=== PATIENT | male | born 1990 | race African-American/Black ===

== ENCOUNTER → 2018-03-06 07:48 | Outpatient (CLI) | payer OTHER, SELFPAY | PROVIDERS: Visit Provider Family Medicine | DX: S39.012A Strain of muscle, fascia and tendon of lower back, initial encounter (principal); Z53.9 Procedure and treatment not carried out, unspecified reason ==

== ENCOUNTER → 2018-07-31 16:27 | Outpatient (CLI) | payer OTHER, SELFPAY ==
[2018-07-31 17:38] LABS: Add Manual Diff / Slide Review NO; Basophils Absolute Auto 0 /uL (0-100); Basophils Percent Auto 0.5 % (0-2); Eosinophils Absolute Auto 200 /uL (0-450); Eosinophils Percent Auto 1.9 % (2-4); Hematocrit 44.9 % (41-53); Hemoglobin 14.6 g/dL (13.5-17.5); Lymphocytes Absolute Auto 2200 /uL (1100-4500); Lymphocytes Percent Auto 26.2 % (25-40); Mean Corpuscular HGB Conc 32.6 % (30-36); Mean Corpuscular Hemoglobin 29.6 PG (26-34); Mean Corpuscular Volume 90.9 fL (80-100); Monocytes Absolute Auto 800 /uL (0-900); Neutrophils Absolute Auto 5100 /uL (1500-7000); Neutrophils Percent Auto 61.4 % (50-75); Platelet Count 249 X10^3/uL (150-400); Red Blood Cell Count 4.93 X10^6/uL (4.5-5.9); Red Cell Distribution Width 13.8 % (11.6-14.8); White Blood Cell Count 8.2 X10^3/uL (4.5-11.0)
[2018-07-31 18:22] LABS: Hemoglobin A1C% w Est Avg Glu 6.4 % (4.0-6.0)
== END ==
PROVIDERS: PCP Family Medicine; Visit Provider Orthopaedic Surgery Orthopaedic Surgery of the Spine
DX: R73.9 Hyperglycemia, unspecified (principal); Z01.818 Encounter for other preprocedural examination
CPT/HCPCS: 36415; 83036; 85025

== ENCOUNTER 2018-08-17 12:21 | Day surgery (SDC) | payer OTHER, SELFPAY ==
[2018-08-02 14:35] VITALS: BMI 51.8
[2018-08-17] VITALS (8 sets, daily range): BP systolic 116–188; BP diastolic 75–112; PULSE 76–140; RESP 12–27; TEMP 36.2–37.2; O2SAT 93–100; BMI 47.7
--- NOTE | 2018-08-17 | DI.RAD.S_ITS ---
PROCEDURE: XR LUMBAR SPINE 2-3V INDICATIONS: L4-5 MICRODISCECTOMY TECHNIQUE: 2 views of the lumbar spine were acquired. COMPARISON: [facility] [place], CR, XR LUMBAR SPINE 2 OR 3 VIEWS, 03/30/2017, 15:25. FINDINGS: Bones: Surgical instrument projected over the posterior elements at the L4-L5 level. Soft tissues: Overlying bowel gas pattern is normal. No suspicious soft tissue calcifications. IMPRESSION: Localization of the left posterior elements at the L4-L5 level for operative planning. Dictated by: Jose Antonio SANCHEZ Interpreted: Verna Mobley MD on 08/17/2018 at 17:15 Approved by: Verna Mobley M.D. on 08/17/2018 at 17:23
[2018-08-17] MEDS: LACTATED RINGERS 1,000 ML 100 ML IV ×2 (13:15→15:57)
--- NOTE | 2018-08-17 14:31 | PM.PREOP ---
Pre-operative Note Interval Note History & Physical reviewed/Exam performed by Physician: Yes Changes to H&P: No
[2018-08-17] MEDS: CEFAZOLIN VIAL 3 GM in SODIUM CHLORIDE 0.9% 100 ML 200 ML IV (15:02)
--- NOTE | 2018-08-17 15:35 | SUR.OPER ---
Prone on spine table, head in foam head support, padded chest and pelvic supports, gel pad at knees, lower legs supported by pillows; nipples, genitalia and toes free of pressure, arms secured on foam padded arm boards at <90 degrees abduction. Tape over blanket at thigh secured to table.
[2018-08-17] MEDS: BUPIVACAINE 0.25% W/ EPI 30 ML VIAL INJ (15:43)
[2018-08-17] MEDS: methylPREDNISolone acet DEPO 40 MG/ML VIAL IM (15:45)
--- NOTE | 2018-08-17 16:29 | PM.OP.1 ---
Operative Date/Time/Diagnoses Date of procedure: 08/17/18 Time of procedure: 13:29 Pre-op diagnosis: 1. L4-5 disc herniation 2. L4-5 spinal stenosis Post-op diagnosis: same Procedure & Clinicians Procedure: 1. L4-5 left microdiscectomy 2. Utilization of microsurgical technique and operating microscope Same procedure as scheduled: Yes Indications: Patient has been having chronic back pain and worsening lumbar radiculopathy. Patient failed multiple conservative management with worsening pain weakness and numbness in her lower extremity. Patient has been having difficulty performing activity of daily living. After discussing risks benefits of treatment options, patient elected proceed with surgery. Surgeon: Kay Armstrong Application Integration Engineer: Tere Sanderson Anesthesia Type: General Operative Notes Closure Type: primary Specimen(s): none sent Estimated Blood Loss (mL): 10 Blood products transfused: none Procedure in detail: Patient was seen in the preoperative area. Risks and benefits of the surgery was discussed with the patient. Informed consent was obtained from the patient and placed in the chart. Surgical site was marked. Patient was taken to the operative room. General anesthesia was administered. Prophylactic antibiotic was given to the patient less than 30 min before the incision was made. Patient was placed into a prone position on the Jeremie table. Patient's back was then prepped and draped in the sterile fashion. Time-out was performed at this time. Using AP and lateral C-arm imaging the interval between L4-5 was identified and marked on patient's back. A 1 inch incision 1 in from midline was made on the left side. The fascia was incised in line with skin incision. Globus MARS retractors was placed inside the incision and docked onto the L4 lamina. Using microsurgical technique and operating microscope, a L4 laminotomy was performed using a Kerrison rongeur. Liagamentum flavum was resected at the site of the laminotomy. The disc space at L4-5 was identified. Microdiscectomy was performed by incising the annulus with #11 blade. Microcurettes and pituitary was used to removed herniated disc fragments of disc from the epidural space. After the microdiskectomy was completed, the area medial lateral superior and inferior to the area of the microdiskectomy was inspected and explored using a micro curette. No other impinging structure was identified. The wound was then irrigated with sterile normal saline. 40 mg Depo-Medrol was placed into the epidural space. The deep fascia was closed with 1-0 Vicryl. The subcutaneous tissue was closed with 2-0 Vicryl. The skin was closed with 4-0 Monocryl. Patient tolerated the procedure well. There were no complications. Patient was transferred recovery room in stable condition. Complications: none Condition: stable Disposition: same day surgery Plan for aftercare: Discharge to home
[2018-08-17] MEDS: hydrOXYzine 50 MG/ML INJ 25 MG IM (17:13)
[2018-08-17] MEDS: HYDROMORPHONE 2 MG INJ 0.5 MG IV (17:21)
[2018-08-17] MEDS: OXYCODONE/ACETAMINOPHEN 5/325 TABLET 1 TAB PO (17:54)
--- NOTE | 2018-08-17 18:00 | SUR.PHASEII ---
surgical site observed to be c/d/i. reviewed discharge instructions with pt and pt spouse. no further questions or concerns asked. bed in lowest position and call light given to pt.
== END 2018-08-17 18:40 ==
LOC: OR 12:24
PROVIDERS: PCP Family Medicine; Visit Provider Orthopaedic Surgery Orthopaedic Surgery of the Spine
PROC: (CPT 63030; principal; 2018-08-17 14:15)
DX: M51.16 Intervertebral disc disorders with radiculopathy, lumbar region (principal); M48.061 Spinal stenosis, lumbar region without neurogenic claudication; M47.26 Other spondylosis with radiculopathy, lumbar region; E66.01 Morbid (severe) obesity due to excess calories; Z68.43 Body mass index [BMI] 50.0-59.9, adult; Z87.891 Personal history of nicotine dependence; G47.33 Obstructive sleep apnea (adult) (pediatric)
CPT/HCPCS: 63030; 72100; 76000; J0330; J0690; J1030; J1100; J1170; J2250; J2405; J2704; J3010; J3410

== ENCOUNTER 2019-08-12 17:23 | Emergency (ER) | payer OTHER, MEDICAID, SELFPAY ==
[2019-08-12 17:27] VITALS: BP 151/79; PULSE 97; RESP 18; TEMP 37.1; O2SAT 96
--- NOTE | 2019-08-12 17:32 | DI.RAD.S_ITS ---
PROCEDURE: XR CHEST 1V INDICATIONS: chest pain TECHNIQUE: One view of the chest was acquired. COMPARISON: None. FINDINGS: Surgical changes and devices: None. Lungs and pleura: Lungs are clear. No pleural effusions or pneumothorax. Mediastinum: Mediastinal contours appear normal. Heart size is normal. Bones and chest wall: No suspicious bony lesions. Overlying soft tissues appear unremarkable. IMPRESSION: Normal chest.. Dictated by: Chery Vance M.D. on 08/12/2019 at 18:28 Approved by: Chery Vance M.D. on 08/12/2019 at 18:29
--- NOTE | 2019-08-12 18:02 | ED_ITS ---
HPI - Chest Pain General Chief Complaint: Chest Pain Stated Complaint: dull aches in heart Time Seen by Provider: 08/12/19 18:02 Source: patient Mode of arrival: Ambulatory Limitations: no limitations History of Present Illness HPI narrative: 29-year-old otherwise healthy male here for evaluation of left- sided chest discomfort he describes it as a pressure. He states it has been off and on for the past week but more prevalent today. He thinks that he has had the symptoms most of the day today. He cannot remember time when he did not have it but is not 100% convinced that he has had it all day long. Not ass ociated with shortness of breath. Not made worse with palpation or movement or breathing. Is associated with some left arm tingling. He also describes some 1 very short episode of lightheadedness but is unsure if that is associated with any of his other symptoms. Was told to come into the emergency department by co-worker. Related Data Home Medications Medication Instructions Recorded Confirmed celecoxib [Celebrex] 200 mg PO BID 08/02/18 08/17/18 Allergies Allergy/AdvReac Type Severity Reaction Status Date / Time No Known Drug Allergies Allergy Verified 08/17/18 12:41 Review of Systems Constitutional Constitutional: Denies fever(s) and Denies headache(s) ENT Ears, Nose, Mouth, and Throat: Denies headache(s) and Denies disequilibrium Cardiovascular Cardiovascular: Reports chest pain, Denies chest pain with activity, Denies syncope, Denies rapid heart rate, Denies leg edema, Denies palpitations and Denies dyspnea Respiratory Respiratory: Denies cough, Denies dyspnea and Denies wheezing Gastrointestinal Gastrointestinal: Denies abdominal pain, Denies nausea and Denies vomiting Musculoskeletal Musculoskeletal: Denies myalgias, Denies arthralgias and Reports tingling (Left arm) Integumentary/Breasts Comments: Left arm tingling Neurologic Neurologic: Denies behavioral changes, Denies syncope, Denies headache(s), Reports tingling (Left arm) and Denies disequilibrium Psychiatric Psychiatric: Denies behavioral changes Endocrine Endocrine: Denies palpitations Hematologic/Lymphatic Hematologic/Lymphatic: Denies easy bleeding and Denies easy bruising Allergic/Immunologic Allergic/Immunologic: Denies wheezing Patient History Medical History Closed head injury (Acute) Current every day smoker (Acute) Joint dislocation (Acute) Low back pain (Acute) Migraines (Acute) Severe obesity (BMI >= 40) (Acute) Sleep apnea (Acute) Social History household members: spouse, family and children Smoking Status: Former smoker Smoking Status: Former smoker Exam Initial Vital Signs Initial Vital Signs: Vital Signs Temperature 98.7 F 08/12/19 17:27 Pulse Rate 97 H 08/12/19 17:27 Respiratory Rate 18 08/12/19 17:27 Blood Pressure 151/79 H 08/12/19 17:27 Pulse Oximetry 96 08/12/19 17:27 Const General: cooperative, comfortable and well developed Limitations: mental status not altered HENMT Head: normal to inspection and normocephalic Resp Effort & Inspection: normal respiratory effort Auscultation: clear to auscultation bilaterally Cardio Rate: regular rate Rhythm: regular rhythm GI Inspection: non-distended Palpation: soft Skin Lesions: no lesions Rashes: no rashes Neuro General: alert, awake and oriented x3 Cognition: normal cognition Speech: speech normal Extrem General: normal to inspection and capillary refill normal Psych Appearance: grossly normal and well kempt Scores GCS [place] coma scale eye opening: Spontaneous Javed coma scale verbal response: Orientated Javed coma scale motor response: Obey commands Javed coma scale total score: 15 HEART Score Heart Score history: Slightly Suspicious Heart Score EKG: Normal Heart Score Age: < 45 years old Heart Score risk factors: 1-2 risk factors Heart Score troponin: < or = to normal limit Heart Score Total: 1 Course Orders Ordered: ED Orders 08/12/19 17:32 XR chest 1V Stat EKG-12 Lead Stat 08/12/19 18:06 Complete Blood Count AUTO DIFF Stat Comprehensive Metabolic Panel Stat Lipase Stat Troponin & CK Cardiac Panel Stat 08/12/19 19:52 Troponin I Stat Discontinued Medications Aspirin (Aspirin Chew) 324 mg PO NOW ONE Stop: 08/12/19 17:33 Last Admin: 08/12/19 18:04 Dose: 324 mg Documented by: BTONER Sodium Chloride (Normal Saline 0.9%) 1,000 mls @ 150 mls/hr IV CONT SARA Last Admin: 08/12/19 21:16 Dose: Not Given Documented by: GARCIAUDDALIA Vital Signs Vital signs: Vital Signs - 8 hr 08/12/19 17:27 08/12/19 19:23 08/12/19 20:05 Temperature 98.7 F Pulse Rate 97 H 92 H 105 H Respiratory Rate 18 22 23 Blood Pressure 151/79 H Blood Pressure [Right Wrist] 142/76 H 158/68 H Pulse Oximetry 96 100 98 08/12/19 20:30 Temperature Pulse Rate 102 H Respiratory Rate 18 Blood Pressure Blood Pressure [Right Wrist] 165/69 H Pulse Oximetry 99 MDM - Chest Pain Medical Records Data Attestation: I reviewed the patient's medical records. Lab Data Attestation: I reviewed the patient's lab results. Result diagrams: 08/12/19 18:06 08/12/19 18:06 Labs: Lab Results 08/12/19 08/12/19 08/12/19 Range/Units 18:06 18:06 19:52 WBC 6.2 (4.5-11.0) X10^3/uL RBC 4.84 (4.5-5.9) X10^6/uL Hgb 14.8 (13.5-17.5) g/dL Hct 43.6 (41-53) % MCV 90.1 (80-100) fL MCH 30.5 (26-34) PG MCHC 33.9 (30-36) % RDW 13.7 (11.6-14.8) % Plt Count 235 (150-400) X10^3/uL Neut % (Auto) 73.9 (50-75) % Lymph % (Auto) 19.2 L (25-40) % [place] % (Auto) 6.1 (3-14) % Eos % (Auto) 0.3 L (2-4) % Baso % (Auto) 0.5 (0-2) % Neut # (Auto) 4600 (6420-1325) /uL Lymph # (Auto) 1200 (9034-1909) /uL [place] # (Auto) 400 (0-900) /uL Eos # (Auto) 0 (0-450) /uL Baso # (Auto) 0 (0-100) /uL Sodium 139 (137-145) mmol/L Potassium 4.0 (3.4-5.1) mmol/L Chloride 102 (98-107) mmol/L Carbon Dioxide 27 (22-32) mmol/L BUN 16 (9-20) mg/dL Creatinine 0.96 (0.66-1.25) mg/dL Estimated GFR > 60.0 (>60) mL/min BUN/Creatinine Ratio 16.7 (6-22) Glucose 124 H (70-100) mg/dL Calcium 10.0 (8.4-10.2) mg/dL Total Bilirubin 0.4 (0.2-1.3) mg/dL AST 53 (17-59) IU/L ALT 55 H (<50) IU/L Alkaline Phosphatase 62 (38-126) U/L Total Creatine Kinase 1444 H (55-170) U/L CK-MB (CK-2) 3.69 H (<2.37) ng/mL CK-MB (CK-2) Rel Index 0.3 L (1.5-5.0) % Troponin I < 0.012 < 0.012 (0.01-0.034) ng/mL Total Protein 8.5 H (6.3-8.2) g/dL Albumin 4.8 (3.5-5.0) g/dL Globulin 3.7 (1.7-4.1) g/dL Albumin/Globulin Ratio 1.3 (1.0-2.8) Lipase 109 (23-300) U/L Imaging Data Chest x-ray: Radiologist's Impression: [place] [address] XRay Report Signed Patient: Geoff Ruano [facility]#: [id number] : 1990Acct:[id number] Age/Sex: 29 / MDate of Service: 08/12/19 Loc: ED Accession Number: [id number] Procedure: XR chest 1V Ordering Provider: Cortes Farr D.O. PROCEDURE: XR CHEST 1V INDICATIONS: chest pain TECHNIQUE: One view of the chest was acquired. COMPARISON: None. FINDINGS: Surgical changes and devices: None. Lungs and pleura: Lungs are clear. No pleural effusions or pneumothorax. Mediastinum: Mediastinal contours appear normal. Heart size is normal. Bones and chest wall: No suspicious bony lesions. Overlying soft tissues appear unremarkable. IMPRESSION: Normal chest.. Dictated by: Chery Vance M.D. on 08/12/2019 at 18:28 Approved by: Chery Vance M.D. on 08/12/2019 at 18:29 ECG Data Attestation: I personally reviewed and interpreted this ECG as follows: Prior ECG tracings: not available for review Interpretation: Sinus rhythm Ventricular rate of 93 Sinus arrhythmia Normal QRS Normal QTC No ST T wave changes MDM Narrative Medical decision making narrative: Low risk heart score, EKG chest x-ray and troponins negative x2. Low suspicion for ACS. Unsure the exact etiology of patient's symptoms but feel it is less likely ACS. Informed patient to contact his primary doctor to discuss indications for stress testing. He was given return precautions and follow-up instructions. He expressed understanding and agreement. Discharge Plan Departure Patient Disposition: Home Clinical Impression: Atypical chest pain Discharge Date/Time: 08/12/19 21:27 Instructions: DI for Atypical Chest Pain Activity Restrictions/Additional Instructions: Recommend that you contact Dr. Fontana office to discuss the indications for a stress test. Return to the emergency department for any new or worsening symptoms Prescriptions: No Action celecoxib [Celebrex] 200 mg Capsule 200 mg PO BID RF: 0 Referrals: Mich Fontana MD [Primary Care Provider] -
[2019-08-12] MEDS: ASPIRIN 81 MG CHEW TAB 324 MG PO (18:04)
[2019-08-12 18:12] LABS: Add Manual Diff / Slide Review NO; Basophils Absolute Auto 0 /uL (0-100); Basophils Percent Auto 0.5 % (0-2); Eosinophils Absolute Auto 0 /uL (0-450); Eosinophils Percent Auto 0.3 % (2-4); Hematocrit 43.6 % (41-53); Hemoglobin 14.8 g/dL (13.5-17.5); Lymphocytes Absolute Auto 1200 /uL (1100-4500); Lymphocytes Percent Auto 19.2 % (25-40); Mean Corpuscular HGB Conc 33.9 % (30-36); Mean Corpuscular Hemoglobin 30.5 PG (26-34); Mean Corpuscular Volume 90.1 fL (80-100); Monocytes Absolute Auto 400 /uL (0-900); Monocytes Percent Auto 6.1 % (3-14); Neutrophils Absolute Auto 4600 /uL (1500-7000); Neutrophils Percent Auto 73.9 % (50-75); Platelet Count 235 X10^3/uL (150-400); Red Blood Cell Count 4.84 X10^6/uL (4.5-5.9); Red Cell Distribution Width 13.7 % (11.6-14.8); White Blood Cell Count 6.2 X10^3/uL (4.5-11.0)
[2019-08-12 18:37] LABS: Alanine Aminotransferase 55 IU/L (<50); Albumin 4.8 g/dL (3.5-5.0); Albumin Globulin Ratio 1.3 (1.0-2.8); Alkaline Phosphatase 62 U/L (38-126); Aspartate Aminotransferase 53 IU/L (17-59); BUN Creatinine Ratio 16.7 (6-22); Bilirubin Total 0.4 mg/dL (0.2-1.3); Blood Urea Nitrogen 16 mg/dL (9-20); Carbon Dioxide 27 mmol/L (22-32); Chloride 102 mmol/L (98-107); Creatine Kinase 1444 U/L (55-170); Estimated Glomerular Filt Rate > 60.0 mL/min (>60); Globulin 3.7 g/dL (1.7-4.1); Glucose 124 mg/dL (70-100); HEMOLYSIS < 15 (0-50); Lipase 109 U/L (23-300); Sodium 139 mmol/L (137-145); Total Protein 8.5 g/dL (6.3-8.2)
[2019-08-12 18:49] LABS: Troponin I < 0.012 ng/mL (0.01-0.034)
[2019-08-12 18:53] LABS: CKMB % Relative Index 0.3 % (1.5-5.0); Creatine Kinase MB 3.69 ng/mL (<2.37)
[2019-08-12 19:23] VITALS: BP 142/76; PULSE 92; RESP 22; O2SAT 100
[2019-08-12 20:05] VITALS: BP 158/68; PULSE 105; RESP 23; O2SAT 98
[2019-08-12 20:30] VITALS: BP 165/69; PULSE 102; RESP 18; O2SAT 99
[2019-08-12 20:31] LABS: Troponin I < 0.012 ng/mL (0.01-0.034)
--- NOTE | 2019-08-12 21:15 | PC.NURSE ---
Patient had questions upon discharge. Provider Lanker at bedside.
--- NOTE | 2019-08-12 21:20 | PC.NURSE ---
Reports tingling and numbness in one or both arms at times. Patient Denies chest pain or SOB currently
== END 2019-08-12 21:27 | disposition home or self-care (01) ==
PROVIDERS: Emergency Medicine; Emergency Provider Emergency Medicine; PCP Family Medicine
DX: R07.89 Other chest pain (principal)
CPT/HCPCS: 36415; 71045; 80053; 82550; 82553; 83690; 84484; 85025; 93005; 93010; 99283; 99284

== ENCOUNTER → 2019-09-21 09:10 | Outpatient (CLI) | payer OTHER, MEDICAID, SELFPAY ==
[2019-09-22 09:05] LABS: COVID19 Sendout Not Detected (Not Detect)
== END ==
PROVIDERS: PCP Family Medicine; Visit Provider Physician Assistant
DX: Z01.812 Encounter for preprocedural laboratory examination (principal)
CPT/HCPCS: 87635

== ENCOUNTER → 2019-09-24 14:41 | Outpatient (CLI) | payer OTHER, MEDICAID, SELFPAY ==
--- NOTE | 2019-09-24 16:06 | PM.TREADMILL ---
Cardiac Stress Test Report Referral & Results Date Patient Seen: 09/24/19 Time Patient Seen: 16:06 Requesting provider: Mich Fontana Indication: chest pain Rest ECG: sinus rhythm Procedure Note: Standard Vincent protocol, 9:00, 9.7 METS Reduced exercise capacity, KENNETH +35% Normal hemodynamic response to exercise No chest pain or anginal symptoms No significant ST changes with peak exercise; no ectopy Impression: Normal exercise stress test MIBI images pending Please note: Actual ECG tracings can be found in the PACS system.
--- NOTE | 2019-09-25 14:36 | DI.NM.S_ITS ---
PROCEDURE PERFORMED: Exercise treadmill stress and rest myocardial perfusion imaging with gating to assess ejection fraction and regional wall motion. DATE OF SERVICE: 09/24/2019. ORDERING PROVIDER: Dr. Mich Fontana. INDICATIONS: The patient is a 29-year-old obese male with atypical chest pain. EXERCISE TREADMILL TESTING: The patient was able to exercise for 9 minutes on a standard Vincent protocol suggesting moderate-severely reduced exercise capacity with an KENNETH of +35%. He had a normal heart rate response to exercise, achieving a maximum heart rate of 166 bpm (87% of his predicted maximum) and a borderline hypertensive blood pressure response with a resting blood pressure of 136/92, increasing to a maximum of 190/98. He had no chest discomfort. His resting ECG is normal and there are no ischemic changes with stress. There were no arrhythmias identified. At 8 minutes of exercise at a heart rate of 162 bpm, 25.5 mCi of technetium-99m Myoview was injected and the patient was imaged 20 minutes laterusing a gated SPECT acquisition protocol. He returned the following day and wasreinjected with an additional 27.3 mCi of technetium-99m Myoview and was imaged 30 minutes later, again using a gated SPECT acquisition protocol. FINDINGS: RAW DATA: There is marginal image quality, in part because of the patient's body habitus and considerable motion on both the stress and the resting images that required application of a motion correction algorithm which itself can introduce artifact. The lung/heart ratio was mildly increased at 0.43, which can be a sign of pulmonary congestion but clinical correlation is needed. TID ratio was normal at 0.85. QUANTITATED GATED SPECT: Post-stress ejection fraction is 60% without any focal wall motion abnormality. Resting ejection fraction is 56% with significantly increased left ventricular volumes with a resting end-diastolic volume of 199 mL. MYOCARDIAL PERFUSION SCAN: Post-stress supine images show a fairly normal perfusion pattern without any obvious focal perfusion defects. This is supported by similar perfusion imaging in the prone position. The resting images show a similar perfusion pattern without any clear areas of improvement. CONCLUSION: 1. Normal myocardial perfusion study. 2. No obvious evidence of myocardial ischemia or previous myocardial infarction although image quality is slightly suboptimal. 3. Normal left ventricular systolic function with increased left ventricular volumes. A borderline elevated lung/heart ratio of 0.43 can indicate pulmonary congestion but clinical correlation is recommended. 4. Moderate-severely reduced exercise capacity without angina or ECG evidence of ischemia. He had a mild hypertensive blood pressure response to exercise. AldenGeoff espinoza - DEEPIKA/deonte/basia doc#: [id number]/job#: [id number] dd: 09/25/2019 12:44:00 dt: 09/25/2019 14:24:00 DICTATING MD/COPIES TO: Nik Fierro MD; Mihc Fontana MD COPIES MNE: AMELIA;
== END ==
PROVIDERS: PCP Family Medicine; Referring Provider Family Medicine; Visit Provider Family Medicine
DX: R07.89 Other chest pain (principal); E66.9 Obesity, unspecified
CPT/HCPCS: 78452; 93017; A9502

== ENCOUNTER 2019-09-30 15:19 | Emergency (ER) | payer OTHER, MEDICAID, SELFPAY ==
[2019-09-30 15:36] VITALS: BP 155/86; PULSE 96; RESP 16; TEMP 36.4; O2SAT 96; BMI 43.7
--- NOTE | 2019-09-30 15:54 | DI.RAD.S_ITS ---
PROCEDURE: XR CHEST 1V INDICATIONS: chest pain TECHNIQUE: One view of the chest was acquired. COMPARISON: [facility], CR, XR CHEST 1V, 08/12/2019, 17:50. FINDINGS: Surgical changes and devices: None. Lungs and pleura: Lungs are clear. No pleural effusions or pneumothorax. Mediastinum: Mediastinal contours appear normal. Heart size is normal. Bones and chest wall: No suspicious bony lesions. Overlying soft tissues appear unremarkable. IMPRESSION: No acute cardiopulmonary process is seen. Dictated by: Aries Balbuena M.D. on 09/30/2019 at 16:05 Approved by: Aries Balbuena M.D. on 09/30/2019 at 16:06
[2019-09-30 16:43] LABS: Add Manual Diff / Slide Review NO; Basophils Absolute Auto 0 /uL (0-100); Basophils Percent Auto 0.4 % (0-2); Eosinophils Absolute Auto 0 /uL (0-450); Eosinophils Percent Auto 0.5 % (2-4); Hematocrit 47.7 % (41-53); Hemoglobin 16.2 g/dL (13.5-17.5); Lymphocytes Absolute Auto 1200 /uL (1100-4500); Lymphocytes Percent Auto 16.6 % (25-40); Mean Corpuscular Hemoglobin 30.3 PG (26-34); Mean Corpuscular Volume 89.2 fL (80-100); Monocytes Absolute Auto 600 /uL (0-900); Neutrophils Absolute Auto 5600 /uL (1500-7000); Neutrophils Percent Auto 74.5 % (50-75); Platelet Count 280 X10^3/uL (150-400); Red Blood Cell Count 5.35 X10^6/uL (4.5-5.9); Red Cell Distribution Width 13.6 % (11.6-14.8); White Blood Cell Count 7.5 X10^3/uL (4.5-11.0)
[2019-09-30 16:45] LABS: INR 1.2 (0.9-1.3); Prothrombin Time 13.6 SECONDS (10.1-12.7)
[2019-09-30 16:48] LABS: PTT Partial Thromboplastin Tim 32 SECONDS (26.4-36.2)
[2019-09-30 16:50] LABS: Alanine Aminotransferase 84 IU/L (<50); Albumin 5.1 g/dL (3.5-5.0); Albumin Globulin Ratio 1.3 (1.0-2.8); Alkaline Phosphatase 73 U/L (38-126); Aspartate Aminotransferase 56 IU/L (17-59); BUN Creatinine Ratio 21.6 (6-22); Bilirubin Total 0.7 mg/dL (0.2-1.3); Blood Urea Nitrogen 22 mg/dL (9-20); Calcium 10.3 mg/dL (8.4-10.2); Carbon Dioxide 27 mmol/L (22-32); Chloride 100 mmol/L (98-107); Creatine Kinase 1112 U/L (55-170); Estimated Glomerular Filt Rate > 60.0 mL/min (>60); Globulin 3.8 g/dL (1.7-4.1); Glucose 141 mg/dL (70-100); HEMOLYSIS 28 (0-50); Lipase 213 U/L (23-300); Potassium 4.2 mmol/L (3.4-5.1); Sodium 137 mmol/L (137-145); Total Protein 8.9 g/dL (6.3-8.2)
[2019-09-30 17:02] LABS: Troponin I 0.017 ng/mL (0.01-0.034)
[2019-09-30 17:05] LABS: CKMB % Relative Index 0.2 % (1.5-5.0); Creatine Kinase MB 2.56 ng/mL (<2.37)
[2019-09-30 17:43] VITALS: BP 145/83; PULSE 91; O2SAT 96
[2019-09-30] MEDS: SODIUM CHLORIDE 0.9% 1,000 ML 1000 ML IV ×2 (18:50→20:22)
[2019-09-30 19:00] VITALS: BP 140/76; PULSE 86; RESP 19; O2SAT 96
[2019-09-30 19:07] LABS: NT-proBNP (BNP-Adult 18+) < 11 pg/mL (<125)
[2019-09-30 20:24] VITALS: BP 130/67; PULSE 89; RESP 18; O2SAT 94
[2019-09-30 20:51] LABS: Bacteria Urine None Seen; RBC Urine None Seen (0-5/HPF); WBC Urine None Seen (0-5/HPF)
--- NOTE | 2019-09-30 20:52 | ED.CHESTPAIN ---
HPI - Chest Pain <SOL Mcguire - Last Filed: 09/30/19 22:04> General Chief Complaint: Chest Pain Stated Complaint: Fast HR, Irregular Breathing Time Seen by Provider: 09/30/19 18:07 Source: patient Mode of arrival: Ambulatory Limitations: no limitations History of Present Illness HPI narrative: This is a 29-year-old male, former smoker, who has previous medical history as hypertension and had treadmill test 6 days ago presents to ED with chief complain of elevated heart rate in 100-110 (per wrist watch/monitor) for couple of hours for last 2 days with mild chest pressure. At one point his heart rate registered as 120 very briefly and had pounding sensation and difficulty catching breath which resolved quickly. Patient denies cold sweats, chest pain, nausea or vomiting. He had actually itching sensation around his heart last couple of days and he contributes this to high blood pressure medication changes. Moment Patient reports he is currently taking lisinopril and HCTZ to manage his blood pressure. She had recent stress test done due to he had atypical chest pain and 2 months months ago and was evaluated in ED. Patient reports he exercises regularly with weightlifting and running and his usual resting heart rate is in 70s to 80s. Patient reports he had not hydrated well yesterday after the workup. 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 However, patient states he has been little bit more stressed with Covid 19. Patient denies history of DVT, PE, blood clotting problems, recent surgeries. Patient reports maternal grandmother at young age with GA and his mother had a couple of episodes of mild heart attacks. Related Data Allergies Allergy/AdvReac Type Severity Reaction Status Date / Time No Known Drug Allergies Allergy Verified 09/21/19 10:22 Review of Systems <Don EngleStephanieSOL Walker - Last Filed: 09/30/19 22:04> Review of Systems Narrative: General: Denies fever, chills, fatigue, malaise, sweats. HEENT: Denies sinus pain, ear pain, sore throat, difficulty swallowing, dizziness. Respiratory: Denies dyspnea, cough, wheezing, hemoptysis, sputum. Cardiovascular: See HPI Gastrointestinal: Denies nausea, vomiting, abdominal pain, diarrhea, constipation, melena. : Denies dysuria, frequency, incontinence, hematuria, urinary retention. Musculoskeletal: Denies weakness, joint pain or bony pain. Skin: Denies rash, skin lesions, or other. Neurologic: Denies weakness, headache, numbness, change in speech, confusion, seizures, incoordination. Psychiatric: No concerning psychosocial issues. 12-point review of systems is negative except for those stated above. Patient History <SOL Mcguire - Last Filed: 09/30/19 22:04> Medical History Closed head injury (Acute) Joint dislocation (Acute) Low back pain (Acute) Migraines (Acute) Severe obesity (BMI >= 40) (Acute) Sleep apnea (Acute) Social History household members: spouse, family and children Smoking Status: Former smoker Smoking Status: Former smoker alcohol intake frequency: holidays/special occasions only Substance Use Type: does not use Exam <SOL Mcguire - Last Filed: 09/30/19 22:04> Narrative Exam Narrative: General: Denies fever, chills, fatigue, malaise, sweats. HEENT: Denies sinus pain, ear pain, sore throat, difficulty swallowing, dizziness. Respiratory: See HPI Cardiovascular: HPI Gastrointestinal: Denies nausea, vomiting, abdominal pain, diarrhea, constipation, melena. : Denies dysuria, frequency, incontinence, hematuria, urinary retention. Musculoskeletal: Denies weakness, joint pain or bony pain. Skin: Denies rash, skin lesions, or other. Neurologic: Denies weakness, headache, numbness, change in speech, confusion, seizures, incoordination. Psychiatric: No concerning psychosocial issues. 12-point review of systems is negative except for those stated above. Initial Vital Signs Initial Vital Signs: Vital Signs Temperature 97.6 F 09/30/19 15:36 Pulse Rate 96 H 09/30/19 15:36 Respiratory Rate 16 09/30/19 15:36 Blood Pressure 155/86 H 09/30/19 15:36 Pulse Oximetry 96 09/30/19 15:36 <Dee Alejandro MD - Last Filed: 10/01/19 00:25> Initial Vital Signs Initial Vital Signs: Vital Signs Temperature 97.6 F 09/30/19 15:36 Pulse Rate 96 H 09/30/19 15:36 Respiratory Rate 16 09/30/19 15:36 Blood Pressure 155/86 H 09/30/19 15:36 Pulse Oximetry 96 09/30/19 15:36 Scores <[facility] - Last Filed: 09/30/19 22:04> GCS [place] coma scale eye opening: Spontaneous Jvaed coma scale verbal response: Orientated Javed coma scale motor response: Obey commands [place] coma scale total score: 15 Wells' Criteria for PE Clinical signs and symptoms of DVT: No PE is #1 Dx or equally likely: No Heart rate > 100: Yes Immobilization at least 3 days or surg in previous 4 weeks: No History of PE or DVT: No Hemoptysis: No Malignancy w/Treatment within 6 months or palliative: No Wells' PE Score total: 1.5 Course <[facility] Filed: 09/30/19 22:04> Orders Ordered: ED Orders 09/30/19 15:50 EKG-12 Lead Stat 09/30/19 15:54 XR chest 1V Stat 09/30/19 16:27 Complete Blood Count AUTO DIFF Stat Comprehensive Metabolic Panel Stat Lipase Stat NT-proBNP (BNP-Adult 18+) Stat Partial Thromboplastin Time Stat Prothrombin Time INR Stat Troponin & CK Cardiac Panel Stat 09/30/19 20:15 Urine Microscopic Stat 09/30/19 20:35 Troponin & CK Cardiac Panel Stat Discontinued Medications Sodium Chloride (Normal Saline 0.9%) 1,000 mls @ 1,000 mls/hr IV BOLUS ONE Stop: 09/30/19 19:06 Last Infusion: 09/30/19 20:13 Dose: 0 mls/hr Documented by: Admin: 09/30/19 18:50 Dose: 1,000 mls/hr Documented by: CJ Sodium Chloride (Normal Saline 0.9%) 1,000 mls @ 1,000 mls/hr IV BOLUS ONE Stop: 09/30/19 21:00 Last Infusion: 09/30/19 22:00 Dose: 0 mls/hr Documented by: Admin: 09/30/19 20:22 Dose: 1,000 mls/hr Documented by: CJ Ketorolac Tromethamine (Toradol) 30 mg IV NOW ONE Stop: 09/30/19 21:11 Last Admin: 09/30/19 21:30 Dose: 30 mg Documented by: JOSE Vital Signs Vital signs: Vital Signs - 8 hr 09/30/19 17:43 09/30/19 19:00 09/30/19 20:24 Pulse Rate 91 H 86 89 Respiratory Rate 19 18 Blood Pressure 145/83 H 140/76 130/67 Pulse Oximetry 96 96 94 09/30/19 21:44 Pulse Rate 77 Respiratory Rate Blood Pressure 153/85 H Pulse Oximetry 94 <Dee Alejandro MD - Last Filed: 10/01/19 00:25> Orders Ordered: ED Orders 09/30/19 15:50 EKG-12 Lead Stat 09/30/19 15:54 XR chest 1V Stat 09/30/19 16:27 Complete Blood Count AUTO DIFF Stat Comprehensive Metabolic Panel Stat Lipase Stat NT-proBNP (BNP-Adult 18+) Stat Partial Thromboplastin Time Stat Prothrombin Time INR Stat Troponin & CK Cardiac Panel Stat 09/30/19 20:15 Urine Microscopic Stat 09/30/19 20:35 Troponin & CK Cardiac Panel Stat Discontinued Medications Sodium Chloride (Normal Saline 0.9%) 1,000 mls @ 1,000 mls/hr IV BOLUS ONE Stop: 09/30/19 19:06 Last Infusion: 09/30/19 20:13 Dose: 0 mls/hr Documented by: Admin: 09/30/19 18:50 Dose: 1,000 mls/hr Documented by: CJ Sodium Chloride (Normal Saline 0.9%) 1,000 mls @ 1,000 mls/hr IV BOLUS ONE Stop: 09/30/19 21:00 Last Infusion: 09/30/19 22:00 Dose: 0 mls/hr Documented by: Admin: 09/30/19 20:22 Dose: 1,000 mls/hr Documented by: CJ Ketorolac Tromethamine (Toradol) 30 mg IV NOW ONE Stop: 09/30/19 21:11 Last Admin: 09/30/19 21:30 Dose: 30 mg Documented by: JOSE Vital Signs Vital signs: Vital Signs - 8 hr 09/30/19 17:43 09/30/19 19:00 09/30/19 20:24 Pulse Rate 91 H 86 89 Respiratory Rate 19 18 Blood Pressure 145/83 H 140/76 130/67 Pulse Oximetry 96 96 94 09/30/19 21:44 Pulse Rate 77 Respiratory Rate Blood Pressure 153/85 H Pulse Oximetry 94 MDM - Chest Pain <Don SOL Camarena - Last Filed: 09/30/19 22:04> Differential Diagnosis Differential diagnosis: Likely atypical chest pain, costochondritis and other (STEMI, anxiety, PE, Elevated CK from physical work out) Medical Records Data Attestation: I reviewed the patient's medical records. Lab Data Attestation: I reviewed the patient's lab results. Result diagrams: 09/30/19 16:27 09/30/19 16:27 Labs: Lab Results 09/30/19 09/30/19 09/30/19 Range/Units 16:27 16:27 16:27 WBC 7.5 (4.5-11.0) X10^3/uL RBC 5.35 (4.5-5.9) X10^6/uL Hgb 16.2 (13.5-17.5) g/dL Hct 47.7 (41-53) % MCV 89.2 (80-100) fL MCH 30.3 (26-34) PG MCHC 34.0 (30-36) % RDW 13.6 (11.6-14.8) % Plt Count 280 (150-400) X10^3/uL Neut % (Auto) 74.5 (50-75) % Lymph % (Auto) 16.6 L (25-40) % [place] % (Auto) 8.0 (3-14) % Eos % (Auto) 0.5 L (2-4) % Baso % (Auto) 0.4 (0-2) % Neut # (Auto) 5600 (6454-6490) /uL Lymph # (Auto) 1200 (1194-6190) /uL [place] # (Auto) 600 (0-900) /uL Eos # (Auto) 0 (0-450) /uL Baso # (Auto) 0 (0-100) /uL PT 13.6 H (10.1-12.7) SECONDS INR 1.2 (0.9-1.3) APTT 32 (26.4-36.2) SECONDS Sodium 137 (137-145) mmol/L Potassium 4.2 (3.4-5.1) mmol/L Chloride 100 (98-107) mmol/L Carbon Dioxide 27 (22-32) mmol/L BUN 22 H (9-20) mg/dL Creatinine 1.02 (0.66-1.25) mg/dL Estimated GFR > 60.0 (>60) mL/min BUN/Creatinine Ratio 21.6 (6-22) Glucose 141 H (70-100) mg/dL Calcium 10.3 H (8.4-10.2) mg/dL Total Bilirubin 0.7 (0.2-1.3) mg/dL AST 56 (17-59) IU/L ALT 84 H (<50) IU/L Alkaline Phosphatase 73 (38-126) U/L Total Creatine Kinase 1112 H (55-170) U/L CK-MB (CK-2) 2.56 H (<2.37) ng/mL CK-MB (CK-2) Rel Index 0.2 L (1.5-5.0) % Troponin I 0.017 (0.01-0.034) ng/mL NT-Pro-B Natriuret Pep (<125) pg/mL Total Protein 8.9 H (6.3-8.2) g/dL Albumin 5.1 H (3.5-5.0) g/dL Globulin 3.8 (1.7-4.1) g/dL Albumin/Globulin Ratio 1.3 (1.0-2.8) Lipase 213 (23-300) U/L Urine RBC (0-5/HPF) Urine WBC (0-5/HPF) Amorphous Sediment Urine Bacteria (None) Urine Mucus (Negative) Ur Culture Indicated? 09/30/19 09/30/19 09/30/19 Range/Units 16:27 20:15 20:35 WBC (4.5-11.0) X10^3/uL RBC (4.5-5.9) X10^6/uL Hgb (13.5-17.5) g/dL Hct (41-53) % MCV (80-100) fL MCH (26-34) PG MCHC (30-36) % RDW (11.6-14.8) % Plt Count (150-400) X10^3/uL Neut % (Auto) (50-75) % Lymph % (Auto) (25-40) % [place] % (Auto) (3-14) % Eos % (Auto) (2-4) % Baso % (Auto) (0-2) % Neut # (Auto) (9836-8128) /uL Lymph # (Auto) (3203-0659) /uL [place] # (Auto) (0-900) /uL Eos # (Auto) (0-450) /uL Baso # (Auto) (0-100) /uL PT (10.1-12.7) SECONDS INR (0.9-1.3) APTT (26.4-36.2) SECONDS Sodium (137-145) mmol/L Potassium (3.4-5.1) mmol/L Chloride (98-107) mmol/L Carbon Dioxide (22-32) mmol/L BUN (9-20) mg/dL Creatinine (0.66-1.25) mg/dL Estimated GFR (>60) mL/min BUN/Creatinine Ratio (6-22) Glucose (70-100) mg/dL Calcium (8.4-10.2) mg/dL Total Bilirubin (0.2-1.3) mg/dL AST (17-59) IU/L ALT (<50) IU/L Alkaline Phosphatase (38-126) U/L Total Creatine Kinase 973 H (55-170) U/L CK-MB (CK-2) 2.24 (<2.37) ng/mL CK-MB (CK-2) Rel Index 0.2 L (1.5-5.0) % Troponin I < 0.012 (0.01-0.034) ng/mL NT-Pro-B Natriuret Pep < 11 (<125) pg/mL Total Protein (6.3-8.2) g/dL Albumin (3.5-5.0) g/dL Globulin (1.7-4.1) g/dL Albumin/Globulin Ratio (1.0-2.8) Lipase (23-300) U/L Urine RBC None seen (0-5/HPF) Urine WBC None seen (0-5/HPF) Amorphous Sediment 1+ Urine Bacteria None seen (None) Urine Mucus 1+ H (Negative) Ur Culture Indicated? Cult not indicated Urine Dip Bedside Urine Glucose Negative Bedside Urine Bilirubin - Negative Bedside Urine Ketone ++ 40 Urine Specific [place] 1.025 Bedside Urine Occult Blood +/- Bedside Urine pH 6.0 Bedside Urine Protein - Negative Bedside Urine Urobilinogen - Negative Bedside Urine Nitrite - Negative Bedside Urine Leukocytes - Negative Esterase Imaging Data Chest x-ray: Radiologist's Impression: [address] [address] XRay Report Signed Patient: Geoff Ruano DMR#: [id number] : 1990Acct:[id number] Age/Sex: 29 / MDate of Service: 09/30/19 Loc: ED Accession Number: [id number] Procedure: XR chest 1V Ordering Provider: Nik Vital MD PROCEDURE: XR CHEST 1V INDICATIONS: chest pain TECHNIQUE: One view of the chest was acquired. COMPARISON: [facility], , XR CHEST 1V, 08/12/2019, 17:50. FINDINGS: Surgical changes and devices: None. Lungs and pleura: Lungs are clear. No pleural effusions or pneumothorax. Mediastinum: Mediastinal contours appear normal. Heart size is normal. Bones and chest wall: No suspicious bony lesions. Overlying soft tissues appear unremarkable. IMPRESSION: No acute cardiopulmonary process is seen. Dictated by: Aries Balbuena M.D. on 09/30/2019 at 16:05 Approved by: Aries Balbuena M.D. on 09/30/2019 at 16:06 ECG Data Attestation: I personally reviewed and interpreted this ECG as follows: Prior ECG tracings: available for review Interpretation: Sinus tachycardia rate at 103 NE interval 172, QRS duration 86, QT/QTC 336/[address] changes. No significant changes from previous EKG tracings. MDM Narrative Medical decision making narrative: This is a 29-year-old male who presents to ED with mild chest pressure with elevated heart rate in 100 to 110s for 2 hours during last 2 days at work. 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 Patient had stress test done 6 days ago which shows no significant ST changes with peak exercises, no ectopy and normal exercise stress test. Patient reports has not reviewed the results as of yet is scheduled to follow up with his primary care physician this coming week. EKG was sinus tachycardia rate at 103. Patient heart rates been in 90s to 80s during ED stay. Chest x-ray shows no acute findings. Unremarkable CBC. Mild elevated serum glucose of 141. Possibly mildly dehydrated with elevated BUN of 22. Mild elevated ALT of 84. Initial CK was 1112 and CK MB of 2.56 and with normal troponin and low CK-MB Rel Index of 0.2. Patient stated has been working out running and weightlifting daily and had not hydrated well yesterday during post work out. Patient received 1 L of normal saline with improved CK of 973. 2nd cardiac enzyme indicates normal troponin, CKMB, and low CKMB Rel Index. ProBNP was negative and patient received another L of normal saline while waiting for the lab test results. Kidney function was within normal limits, otherwise unremarkable CMP. Well's criteria for pulmonary embolism shows low risk and chest CT was deferred. Patient was medicated with Toradol IV for atypical chest pain likely costal chondritis. Findings were discussed with patient. Patient advised adequately hydrate post workup. Patient advised to follow-up with primary care physician this coming week for stress test results and today's ED visit. Return precautions were discussed with the patient and patient verbalized understanding and in agreement with the treatment plan. <Dee Alejandro MD - Last Filed: 10/01/19 00:25> Lab Data Labs: Lab Results 09/30/19 09/30/19 09/30/19 Range/Units 16:27 16:27 16:27 WBC 7.5 (4.5-11.0) X10^3/uL RBC 5.35 (4.5-5.9) X10^6/uL Hgb 16.2 (13.5-17.5) g/dL Hct 47.7 (41-53) % MCV 89.2 (80-100) fL MCH 30.3 (26-34) PG MCHC 34.0 (30-36) % RDW 13.6 (11.6-14.8) % Plt Count 280 (150-400) X10^3/uL Neut % (Auto) 74.5 (50-75) % Lymph % (Auto) 16.6 L (25-40) % [place] % (Auto) 8.0 (3-14) % Eos % (Auto) 0.5 L (2-4) % Baso % (Auto) 0.4 (0-2) % Neut # (Auto) 5600 (7235-5379) /uL Lymph # (Auto) 1200 (5038-9394) /uL [place] # (Auto) 600 (0-900) /uL Eos # (Auto) 0 (0-450) /uL Baso # (Auto) 0 (0-100) /uL PT 13.6 H (10.1-12.7) SECONDS INR 1.2 (0.9-1.3) APTT 32 (26.4-36.2) SECONDS Sodium 137 (137-145) mmol/L Potassium 4.2 (3.4-5.1) mmol/L Chloride 100 (98-107) mmol/L Carbon Dioxide 27 (22-32) mmol/L BUN 22 H (9-20) mg/dL Creatinine 1.02 (0.66-1.25) mg/dL Estimated GFR > 60.0 (>60) mL/min BUN/Creatinine Ratio 21.6 (6-22) Glucose 141 H (70-100) mg/dL Calcium 10.3 H (8.4-10.2) mg/dL Total Bilirubin 0.7 (0.2-1.3) mg/dL AST 56 (17-59) IU/L ALT 84 H (<50) IU/L Alkaline Phosphatase 73 (38-126) U/L Total Creatine Kinase 1112 H (55-170) U/L CK-MB (CK-2) 2.56 H (<2.37) ng/mL CK-MB (CK-2) Rel Index 0.2 L (1.5-5.0) % Troponin I 0.017 (0.01-0.034) ng/mL NT-Pro-B Natriuret Pep (<125) pg/mL Total Protein 8.9 H (6.3-8.2) g/dL Albumin 5.1 H (3.5-5.0) g/dL Globulin 3.8 (1.7-4.1) g/dL Albumin/Globulin Ratio 1.3 (1.0-2.8) Lipase 213 (23-300) U/L Urine RBC (0-5/HPF) Urine WBC (0-5/HPF) Amorphous Sediment Urine Bacteria (None) Urine Mucus (Negative) Ur Culture Indicated? 09/30/19 09/30/19 09/30/19 Range/Units 16:27 20:15 20:35 WBC (4.5-11.0) X10^3/uL RBC (4.5-5.9) X10^6/uL Hgb (13.5-17.5) g/dL Hct (41-53) % MCV (80-100) fL MCH (26-34) PG MCHC (30-36) % RDW (11.6-14.8) % Plt Count (150-400) X10^3/uL Neut % (Auto) (50-75) % Lymph % (Auto) (25-40) % [place] % (Auto) (3-14) % Eos % (Auto) (2-4) % Baso % (Auto) (0-2) % Neut # (Auto) (0930-5913) /uL Lymph # (Auto) (1611-7879) /uL [place] # (Auto) (0-900) /uL Eos # (Auto) (0-450) /uL Baso # (Auto) (0-100) /uL PT (10.1-12.7) SECONDS INR (0.9-1.3) APTT (26.4-36.2) SECONDS Sodium (137-145) mmol/L Potassium (3.4-5.1) mmol/L Chloride (98-107) mmol/L Carbon Dioxide (22-32) mmol/L BUN (9-20) mg/dL Creatinine (0.66-1.25) mg/dL Estimated GFR (>60) mL/min BUN/Creatinine Ratio (6-22) Glucose (70-100) mg/dL Calcium (8.4-10.2) mg/dL Total Bilirubin (0.2-1.3) mg/dL AST (17-59) IU/L ALT (<50) IU/L Alkaline Phosphatase (38-126) U/L Total Creatine Kinase 973 H (55-170) U/L CK-MB (CK-2) 2.24 (<2.37) ng/mL CK-MB (CK-2) Rel Index 0.2 L (1.5-5.0) % Troponin I < 0.012 (0.01-0.034) ng/mL NT-Pro-B Natriuret Pep < 11 (<125) pg/mL Total Protein (6.3-8.2) g/dL Albumin (3.5-5.0) g/dL Globulin (1.7-4.1) g/dL Albumin/Globulin Ratio (1.0-2.8) Lipase (23-300) U/L Urine RBC None seen (0-5/HPF) Urine WBC None seen (0-5/HPF) Amorphous Sediment 1+ Urine Bacteria None seen (None) Urine Mucus 1+ H (Negative) Ur Culture Indicated? Cult not indicated Urine Dip Bedside Urine Glucose Negative Bedside Urine Bilirubin - Negative Bedside Urine Ketone ++ 40 Urine Specific [place] 1.025 Bedside Urine Occult Blood +/- Bedside Urine pH 6.0 Bedside Urine Protein - Negative Bedside Urine Urobilinogen - Negative Bedside Urine Nitrite - Negative Bedside Urine Leukocytes - Negative Esterase Discharge Plan Departure Patient Disposition: Home Clinical Impression: Atypical chest pain Discharge Date/Time: 09/30/19 22:07 Instructions: DI for Atypical Chest Pain Activity Restrictions/Additional Instructions: You have been diagnosed with [atypical chest pain and elevated CK likely from a hard work out without good hydration post workout. Your kidney function was unremarkable. Your other cardiac enzymes were unremarkable. You were treated with IV hydration while in ED and Toradol for discomfort. Your heart rate has been within normal limits in ED. EKG was sinus rhythm. Please hydrate adequately after post workout.] What to do: *Take your medications as directed. *Follow up with your primary care provider in 2-3 days, call for an appointment. Let them know you were seen in the ED and that we asked you to be seen in follow up. *Return to ED if you have any new, worsening, or concerning symptoms, such as [worsening or different chest pain, breathing difficulty, fever, unable to tolerate fluids, or any acute concerns]. Referrals: Mich Fontana MD [Primary Care Provider] - <Dee Alejandro MD - Last Filed: 10/01/19 00:25> [facility] Attestation: I was immediately available in the department for consultation throughout this patient's visit. I agree with documentation as above. Dee Alejandro MD
[2019-09-30 20:55] LABS: Creatine Kinase 973 U/L (55-170)
[2019-09-30 21:01] LABS: Amorphous Sediment Urine 1+; Culture Indicated Urine Cult Not Indicated; Mucus Urine 1+ (Negative)
[2019-09-30 21:07] LABS: Troponin I < 0.012 ng/mL (0.01-0.034)
[2019-09-30 21:11] LABS: CKMB % Relative Index 0.2 % (1.5-5.0); Creatine Kinase MB 2.24 ng/mL (<2.37)
[2019-09-30] MEDS: KETOROLAC 60 MG/2 ML VIAL 30 MG IV (21:30)
[2019-09-30 21:44] VITALS: BP 153/85; PULSE 77; O2SAT 94
== END 2019-09-30 22:07 | disposition home or self-care (01) ==
PROVIDERS: Emergency Medicine; Emergency Provider Nurse Practitioner Family; PCP Family Medicine
DX: R07.89 Other chest pain (principal); I10 Essential (primary) hypertension; R06.00 Dyspnea, unspecified; R79.89 Other specified abnormal findings of blood chemistry; R00.0 Tachycardia, unspecified
CPT/HCPCS: 36415; 71045; 80053; 81003; 81015; 82550; 82553; 83690; 83880; 84484; 85025; 85610; 85730; 93005; 96361; 96374; 99284; J1885

== ENCOUNTER → 2019-10-10 11:52 | Outpatient (ROUT) | payer OTHER, MEDICAID, SELFPAY ==
[2019-10-10 12:18] LABS: Troponin I < 0.012 ng/mL (0.01-0.034)
== END ==
PROVIDERS: PCP Family Medicine; Visit Provider Family Medicine
DX: R07.89 Other chest pain (principal); I10 Essential (primary) hypertension
CPT/HCPCS: 84484

== ENCOUNTER → 2019-11-02 07:07 | Outpatient (CLI) | payer OTHER, MEDICAID, SELFPAY ==
--- NOTE | 2019-11-02 | DI.ECHO.S_ITS ---
[facility]---------+ [facility] +---------+ : : [address] : : : : [id number] : : : : Phone: [phone] Echocardiogram Report + + :Name: ABBY BOLDEN Study Date: 11/02/2019 Height: 66 in : :[facility] Weight: 290 lb : : Gender: Male BSA: 2.3 m2 : :: 1990 Age: 29 yrs BP: 121/80 mmHg: :Reason For Study: Chest pain : : Performed By: Carolina Page : :Referring: CARIDAD ENNIS : + + Interpretation Summary The left ventricle is normal in size, wall thickness, and systolic function without any focal wall motion abnormalities. Diastolic parameters suggest probable normal left ventricular diastolic function and normal filling pressures. The right ventricle is normal in size and function. Pulmonary artery pressures cannot be estimated because of the lack of a measurable TR jet velocity. No hemodynamically significant valvular abnormalities. There is no prior echocardiogram noted for this patient. Procedure: A two-dimensional transthoracic echocardiogram with color flow and Doppler was performed. The study quality was technically adequate. There is no prior echocardiogram noted for this patient. The patient was in normal sinus rhythm during the exam. Left Ventricle: The left ventricle is normal in size, wall thickness, and systolic function without any focal wall motion abnormalities. The ejection fraction is estimated to be 55-60%. Diastolic parameters suggest probable normal left ventricular diastolic function and normal filling pressures. Right Ventricle: The right ventricle is normal in size and function. Atria: The left atrium is mildly dilated. The right atrium is borderline dilated. There is no Doppler evidence for an interatrial shunt. Mitral Valve: The mitral valve is normal in structure and function. There is trace mitral regurgitation. Aortic Valve: The aortic valve is trileaflet. The aortic valve opens well. There is no aortic valve stenosis. No aortic regurgitation is present. Tricuspid Valve: The tricuspid valve is normal in structure and function. There is a trace or physiologic amount of tricuspid regurgitation. Pulmonary artery pressures cannot be estimated because of the lack of a measurable TR jet velocity. Pulmonic Valve: The pulmonic valve is not well seen, but is grossly normal. There is a trace or physiologic amount of pulmonic regurgitation. Great Vessels: The aortic root is normal size. The ascending aorta is at the upper limits of normal in size. The pulmonary artery is not well visualized, but is probably normal size. The IVC is of normal diameter and collapses greater than 50% with a sniff. This suggests a low right atrial pressure of 3 mm Hg. Pericardium/ Pleura There is no pericardial effusion. There is no pleural effusion. MMode/2D Measurements & Calculations LVIDd: 5.4 cm LVOT diam: 2.3 cm LVIDs: 4.0 cm Ao root diam: 3.5 cm FS: 25.0 % asc Aorta Diam: 3.3 cm IVSd: 0.75 cm LVPWd: 0.87 cm LV palomino. diameter/BSA (cm/m^2): 2.3 LV sys. diameter/BSA (cm/m^2): 1.7 LA A2 area: 20.5 cm2 RA long axis: 5.0 cm LA A4 area: 27.0 cm2 RA area: 21.0 cm2 LA length (vol): 5.4 cm RA vol: 75.0 ml LA vol: 87.4 ml RA : 32.0 ml/m2 LA vol index: 37.3 ml/m2 IVC diam: 2.0 cm RVD1 (basal): 4.6 cm TAPSE: 1.7 cm Doppler Measurements & Calculations Ao V2 max: 133.0 cm/sec LVOT Max Raymond: 75.4 cm/sec Ao V2 mean: 88.3 cm/sec LV V1 max P.3 mmHg Ao max P.1 mmHg LV V1 VTI: 16.4 cm Ao mean P.5 mmHg BEVERLY(I,D): 2.7 cm2 Ao V2 VTI: 25.0 cm BEVERLY(V,D): 2.4 cm2 sev ratio: 0.65 BEVERLY indexed to BSA (cm^2/m^2): 1.2 MV E max raymond: 115.8 cm/sec PA V2 max: 96.6 cm/sec MV A max raymond: 52.7 cm/sec PA V2 mean: 70.7 cm/sec MV E/A: 2.2 PA mean P.1 mmHg Med Peak E' Raymond: 15.0 cm/sec PA pr(Accel): 32.8 mmHg E/E' med: 7.7 Lat Peak E' Raymond: 18.3 cm/sec E/E' lat: 6.3 E/e' average: 7.0 MV dec time: 0.16 sec SV(LVOT): 68.3 ml Electronically signed by: Keron Piper M.D. on Reading Physician:11/02/2019 02:38 PM
== END ==
PROVIDERS: PCP Family Medicine; Referring Provider Family Medicine; Visit Provider Family Medicine
DX: R07.9 Chest pain, unspecified (principal); I10 Essential (primary) hypertension
CPT/HCPCS: 93306

== ENCOUNTER → 2019-12-03 09:16 | Outpatient (CLI) | payer OTHER, MEDICAID, SELFPAY ==
[2019-12-04 12:42] LABS: COVID19 Sendout Not Detected (Not Detect)
== END ==
PROVIDERS: PCP Family Medicine; Visit Provider Physician Assistant
DX: Z11.59 Encounter for screening for other viral diseases (principal)
CPT/HCPCS: 87635

== ENCOUNTER → 2020-01-18 08:40 | Outpatient (CLI) | payer OTHER, MEDICAID, SELFPAY ==
[2020-01-21 07:38] LABS: COVID19 Sendout Not Detected (Not Detect)
== END ==
PROVIDERS: PCP Family Medicine; Visit Provider Physician Assistant
DX: Z11.59 Encounter for screening for other viral diseases (principal)
CPT/HCPCS: 87635

== ENCOUNTER → 2020-03-25 15:11 | Outpatient (CLI) | payer OTHER, SELFPAY ==
--- NOTE | 2020-03-25 15:20 | DI.RAD.S_ITS ---
PROCEDURE: XR ANKLE LT MIN 3V INDICATIONS: LT ANKLE INJURY/PAIN TECHNIQUE: 3 views of the ankle were acquired. COMPARISON: None. FINDINGS: Bones: No fractures or dislocations. Ankle mortise is normally aligned. No suspicious bony lesions. Soft tissues: No tibiotalar joint effusion. Achilles tendon appears normal. IMPRESSION: No trauma found. Dictated by: Marty Hobbs M.D. on 03/25/2020 at 15:40 Approved by: Marty Hobbs M.D. on 03/25/2020 at 15:42
== END ==
PROVIDERS: PCP Family Medicine; Referring Provider Internal Medicine; Visit Provider Internal Medicine
DX: S99.912A Unspecified injury of left ankle, initial encounter (principal); X58.XXXA Exposure to other specified factors, initial encounter
CPT/HCPCS: 73610

== ENCOUNTER → 2021-08-14 15:26 | Outpatient (CLI) | payer OTHER, MEDICAID, SELFPAY ==
--- NOTE | 2021-08-14 | DI.CT.S_ITS ---
PROCEDURE: CT SINUS SCREEN WO CON INDICATIONS: Chronic pansinusitis TECHNIQUE: Noncontrast 3.0 mm axial images acquired from the frontal sinuses to the mid-sella, with coronal and sagittal reformats. For radiation dose reduction, the following was used: automated exposure control, adjustment of mA and/or kV according to patient size. COMPARISON: None. FINDINGS: Image quality: Excellent. Mild mucosal thickening noted in the left maxillary sinus and the left frontal sinus. Minimal mucosal thickening noted in the right maxillary sinus. Scattered mucosal thickening noted in the anterior left ethmoid air cells. No air-fluid levels are identified. The right ostiomeatal unit is patent. The left ostiomeatal unit is opacified. No osseous thickening, osseous remodeling or osseous erosive changes. Nasal septum is deviated to the left. Large right césar bullosa noted. Large left Debbie air cell noted. IMPRESSION: 1. Mild left maxillary and left frontal sinus mucosal thickening. 2. Minimal right maxillary sinus mucosal thickening. 3. No air-fluid levels. Dictated by: Tami James MD, PhD on 08/14/2021 at 16:04 Approved by: Tami James MD, PhD on 08/14/2021 at 16:07
== END ==
PROVIDERS: PCP Family Medicine; Referring Provider Otolaryngology; Visit Provider Otolaryngology
DX: J32.4 Chronic pansinusitis (principal)
CPT/HCPCS: 70486

== ENCOUNTER → 2021-10-08 10:46 | Outpatient (CLI) | payer OTHER, MEDICAID, SELFPAY ==
--- NOTE | 2021-10-08 | DI.RAD.S_ITS ---
PROCEDURE: XR CHEST 2V INDICATIONS: Acute cough TECHNIQUE: 2 views of the chest were acquired. COMPARISON: [facility], , XR CHEST 1V, 09/30/2019, 16:39. FINDINGS: Surgical changes and devices: None. Lungs and pleura: Lungs are clear. No pleural effusions or pneumothorax. Mediastinum: Mediastinal contours are normal. Heart size is normal. Bones and chest wall: No suspicious bony abnormalities. Soft tissues appear unremarkable. IMPRESSION: Normal two view chest x-ray Approved by: Deny Beard M.D. on 10/08/2021 at 16:29
== END ==
PROVIDERS: PCP Family Medicine; Referring Provider Family Medicine; Visit Provider Family Medicine
DX: R05.1 Acute cough (principal)
CPT/HCPCS: 71046

== ENCOUNTER → 2021-10-27 09:09 | Outpatient (CLI) | payer OTHER, MEDICAID, SELFPAY ==
--- NOTE | 2021-10-27 09:17 | DI.CT.S_ITS ---
PROCEDURE: CT SINUS SCREEN WO CON INDICATIONS: Chronic pansinusitis TECHNIQUE: Noncontrast 3.0 mm axial images acquired from the frontal sinuses to the mid-sella, with coronal and sagittal reformats. For radiation dose reduction, the following was used: automated exposure control, adjustment of mA and/or kV according to patient size. COMPARISON: [facility], CT, CT SINUS SCREEN WO CON, 08/14/2021, 15:30. FINDINGS: Image quality: Excellent. Maxillary Sinuses: There is moderate to prominent mucosal thickening seen within the left maxillary sinus. There is demineralization of the medial wall of the left maxillary sinus. Mild mucosal thickening seen within right maxillary sinus. The medial wall of the right maxillary sinus is mildly demineralized. Ethmoid Air Cells: No bony remodeling or destruction. Sinuses are clear. Sphenoid Sinuses: No bony remodeling or destruction. Sinuses are clear. Frontal Sinuses: No bony remodeling or destruction. Sinuses are clear. Ostiomeatal Complexes: The left ostiomeatal complex is not well seen and is believed to be narrowed and demineralized. The right ostiomeatal complex is narrowed. Miscellaneous: Visualized intra-orbital contents are normal. Bilateral césar bullosa are seen, right larger than left. There is mild leftward nasal septal deviation. Soft tissue can be seen within the left nasal cavity. Please correlate with nasal polyps. IMPRESSION: Paranasal sinus disease is seen, which is worst within the left maxillary sinus, which has progressed compared to prior CT. Areas of bony mid demineralization can be seen, which are consistent with chronic sinusitis. Bilateral césar bullosa are seen, left larger than right. Mild leftward nasal septal deviation is seen. The left ostiomeatal complex is not well seen and is demineralized. The right ostiomeatal complex is narrowed. Likely left-sided nasal polyps. Dictated by: Aries Balbuena M.D. on 10/27/2021 at 9:57 Approved by: Aries Balbuena M.D. on 10/27/2021 at 10:00
== END ==
PROVIDERS: PCP Family Medicine; Referring Provider Otolaryngology; Visit Provider Otolaryngology
DX: J32.4 Chronic pansinusitis (principal); J34.89 Other specified disorders of nose and nasal sinuses; J34.2 Deviated nasal septum; J34.3 Hypertrophy of nasal turbinates
CPT/HCPCS: 70486

== ENCOUNTER → 2022-01-05 14:28 | Outpatient (ROUT) | payer OTHER, MEDICAID, SELFPAY ==
[2022-01-05 16:23] LABS: COVID-19 CEPHEID PCR (VTM/NP) Negative (Negative)
== END ==
PROVIDERS: PCP Family Medicine; Visit Provider Otolaryngology
DX: Z20.822 Contact with and (suspected) exposure to COVID-19 (principal)
CPT/HCPCS: U0003; U0005

== ENCOUNTER 2022-01-07 10:41 | Day surgery (SDC) | payer OTHER, MEDICAID, SELFPAY ==
[2022-01-07] VITALS (10 sets, daily range): BP systolic 90–154; BP diastolic 55–101; PULSE 78–108; RESP 16–33; TEMP 36.6–37.1; O2SAT 92–99; BMI 44.9; BMI 44.5
--- NOTE | 2022-01-07 12:24 | PM.PREOP ---
Pre-operative Note Interval Note History & Physical reviewed/Exam performed by Physician: Yes Changes to H&P: No
--- NOTE | 2022-01-07 12:25 | PM.HP.1 ---
History of Present Illness History of Present Illness Date Patient Seen: 01/07/22 Time Patient Seen: 12:25 Chief complaint: SEPTOPLASTY & ENDOSCOPIC SINUS SURGERY Narrative: 31-year-old male last seen in clinic 10/28/2021 with nasal airway obstruction, septal deviation and chronic sinusitis presents for septoplasty, turbinate reduction, and anterior endoscopic sinus surgery. He continues his CPAP for severe MEMO, no other health changes, no recent cough cold or fever. Patient History Medical History Chronic pansinusitis Closed head injury César bullosa Exposure to TB Fatigue due to sleep pattern disturbance Hormone disorder HTN (hypertension) Joint dislocation Low back pain Migraines Morbid obesity with body mass index (BMI) of 40.0 to 49.9 Nasal obstruction Nasal septal deviation Nasal turbinate hypertrophy Nocturnal hypoxemia Obstructive sleep apnea syndrome (~2016) Severe obesity (BMI >= 40) Snoring Surgical History Hx of microdiscectomy (08/17/18) Family & Social History Social History: household members spouse,children lives independently Yes caregiver/support person No Tobacco & Substance use: Smoking Status Former smoker alcohol intake frequency holiday/special occasion Substance Use Type does not use Meds Home Medications and Allergies Home Medications Medication Instructions Recorded Confirmed Type lisinopril 10 1 tab PO DAILY 07/09/20 01/07/22 History mg-hydrochlorothiazide 12.5 mg tablet ResMed AirSense 10 Auto 04/30/21 04/30/21 History Allergies Allergy/AdvReac Type Severity Reaction Status Date / Time No Known Drug Allergies Allergy Verified 04/30/21 11:41 Review of Systems Review of Systems Narrative: Negative except as listed in the HPI Exam Narrative Exam Narrative: Well-developed well-nourished stocky male in no acute distress, no illness 2 to 3+ left septal deviation. Heart regular rate and rhythm without murmur, lungs clear to auscultation bilaterally Assessment & Plan Assessment & Plan narrative: Assessment chronic pansinusitis, nasal obstruction, septal deviation, inferior turbinate hypertrophy, right césar bullosa of the middle turbinate, and MEMO Plan: Following discussion of the material risks benefits complications and alternatives, he elected to proceed with septoplasty, turbinate reduction and sinus surgery as outpatient. Time Spent With Patient Critical Care time: I spent a total of [] minutes of critical care time on this patient's care today; this time is exclusive of procedural time.
--- NOTE | 2022-01-07 12:27 | PM.OP.1 ---
Operative Date/Time/Diagnoses Date of procedure: 01/07/22 Time of procedure: 17:01 Pre-op diagnosis: Chronic sinusitis, nasal airway obstruction, septal deviation, inferior turbinate hypertrophy, césar bullosa right middle turbinate Post-op diagnosis: same Procedure & Clinicians Procedure: 1. Septoplasty 2. Bilateral endoscopic maxillary antrostomy 3. Bilateral endoscopic anterior ethmoidectomies 4. RIGHT césar bullosa resection 5.Bilateral inferior turbinate reduction via intramural cautery Same procedure as scheduled: Yes Indications: 31-year-old male with the above diagnoses incompletely managed with medical therapy presents for the above procedures. Following discussion of the material risks benefits complications and alternatives, he elected to proceed. Surgeon: Jorge Fernando Click Yes if Unassisted: Yes Anesthesia Type: General and Local Operative Notes Findings: 2 to 3+ left cartilaginous septal deviation, moderate césar bullosa of the right middle turbinate resected. Atypical anatomy LEFT uncinate. Healthy sinus mucosa bilaterally. Excellent hemostasis throughout. Estimated Blood Loss (mL): 50 Procedure in detail: Following identification and confirmation of consent as well as preoperative Afrin nasal spray, the patient was brought to the operating room suite and placed in the supine position. General endotracheal anesthesia was administered. I infiltrated the septum widely bilaterally with 1% lidocaine 1 100,000 epinephrine followed by temporary packing with cotton with Afrin and 4% lidocaine. Following sterile prep and drape, the packing was removed and I performed a right ksenia-transfixion incision, elevated the right mucoperichondrial and mucoperiosteal flap. I disarticulated near the bony/cartilaginous junction and elevated the left mucoperiosteal flap. Deviated portions of the perpendicular plate of the ethmoid and vomer were resected. The residual quadrilateral cartilage was further straightened by trimming it inferiorly as well as reducing the maxillary crest. A 2 mm strip of cartilage paralleling the residual 1 cm dorsal and caudal strut was resected to further straighten the quadrilateral cartilage. The hemitransfixion incision was closed with interrupted 5 0 chromic followed by a running 4 0 plain gut mattress suture to reapproximate the septal flaps. The head of each inferior turbinate had been previously infiltrated with additional local anesthetic and a 25 gauge spinal needle was used to impale the length of the turbinate, with cautery on a setting of 15 activated on slow withdrawal over 2 passes each side. The turbinates were then outfractured. Under endoscopic guidance the posterior and anterior superior insertion of each middle turbinate was then infiltrated with additional local anesthetic via spinal needle. Epi 1:1000 on small pledgets were placed in the middle meatus for several minutes. Beginning on the left side, the middle turbinate was slightly medialized and the uncinate process was eventually identified with uncinectomy performed via the backbiting forceps and the microdebrider. The natural os of the maxillary sinus was identified and enlarged posteriorly and inferiorly with forceps and the microdebrider. Anterior ethmoidectomy was performed by removing the ethmoid bulla with the microdebrider. This procedure was repeated on the right side with identical findings. The césar bullosa on the RIGHT was resected, removing the lateral portion to greatly increase the airway on that side. At case completion, James air channel silastic splints were placed bilaterally, with the posterior ends deliberately in the middle meatus on each side, sutured anteriorly with a single 4 0 nylon. The procedure completed, sponge and needle counts were correct and the patient was extubated in the operating room and taken to recovery room in stable condition without known complication. Complications: none Post-operative Condition: stable Disposition: same day surgery Plan for aftercare: Nasal saline every hour while awake, begin irrigations t.i.d. tomorrow if possible. Polysporin to the nostrils at all times, Tylenol alternating with Advil for pain control, oxycodone for breakthrough pain. Elevate head of bed, no nose blowing, no straining for 2 weeks. Ice directly under the nose on the upper lip has tolerated 24-48 hours at a minimum. Maintain CPAP use throughout the postoperative. Follow-up in 1 week for nasal splint removal.
[2022-01-07] MEDS: OXYMETAZOLINE NASAL SPRAY 15 ML 2 SPRAYS NASAL ×2 (12:43→15:42)
[2022-01-07] MEDS: LACTATED RINGERS 1,000 ML 42 ML IV (12:44)
--- NOTE | 2022-01-07 15:30 | SUR.OPER ---
Supine on padded OR bed, head on pillow, arms padded and tucked at sides, legs uncrossed, safety belt at thigh, tape over blanket over lower legs .
[2022-01-07] MEDS: LIDOCAINE 1% 20 ML INJ (15:38)
[2022-01-07] MEDS: EPINEPHrine 1 MG/ML 2 MG IRR (15:40)
[2022-01-07] MEDS: BACITRACIN OINT 0.9 GM PCKT 1 APPLIC TOP (15:41)
[2022-01-07] MEDS: LIDOCAINE 4% SOLN 50 ML 20 ML TOP (15:42)
[2022-01-07] MEDS: OXYCODONE IR 5 MG TABLET PO ×2 (17:48→18:18)
--- NOTE | 2022-01-07 18:43 | SUR.PHASEII ---
patient ambulated to wheelchair with steady gait. Tolerated fluids and snacks. Provided written/verbal discharge instructions. patient stated understanding. discharged patient by wheelchair to private vehicle in stable condition.
== END 2022-01-07 18:43 | disposition home or self-care (01) ==
PROVIDERS: PCP Family Medicine; Referring Provider Otolaryngology; Visit Provider Otolaryngology
PROC: (CPT 30520; principal; 2022-01-07 12:00)
PROC: (CPT 31231; 2022-01-07 12:00)
DX: J34.2 Deviated nasal septum (principal); J32.4 Chronic pansinusitis; J98.8 Other specified respiratory disorders; J34.3 Hypertrophy of nasal turbinates; I10 Essential (primary) hypertension; G47.33 Obstructive sleep apnea (adult) (pediatric)
CPT/HCPCS: 30520; 31256; 31254; 30802; 31240; J0171; J1100; J2405; J3010

== ENCOUNTER → 2022-02-18 09:45 | Outpatient (CLI) | payer OTHER, MEDICAID, SELFPAY ==
--- NOTE | 2022-02-18 | DI.NM.S_ITS ---
PROCEDURE: NM KARL PERF SPECT REST & STR Rest and exercise myocardial perfusion SPECT with gated imaging and ejection fraction RADIOPHARMACEUTICAL: 25.4 mCi Tc-99m sestamibi IV at rest and 24.6 mCi Tc-99m sestamibi IV at peak exercise. A [id number] was performed. INDICATIONS: Other chest pain TECHNIQUE: Radiopharmaceutical was injected at peak stress test, and also at rest. SPECT images were obtained. SPECT myocardial perfusion images were displayed in short axis, horizontal long axis, and vertical long axis views. Gated images were reviewed using Share Some Style software. COMPARISON: None. CARDIAC STRESS: A standard Vincent treadmill exercise tolerance test was performed by the patient under the supervision of an attending staff. The patient exercised for 8 minutes and 59 seconds; 10.1 METS; functional aerobic impairment (KENNETH) is +33%. Hemodynamic data: There is normal blood pressure and heart rate response to exercise stress. Patient achieved 86% of maximum predicted heart rate at peak exercise. Maximum blood pressure 195/80. Symptoms: Patient reported 5 out of 10 chest tightness at peak exercise. EKG: Rest EKG sinus rhythm. Stress ECG sinus tachycardia, no ST segment changes, occasional PVCs. FINDINGS: Raw data: There is good myocardial labeling by radiotracer. No significant motion artifacts. Lwtw-vm-lexny ratio is 0.22 (normal is less than 0.38 for sestamibi tracer, and less than 0.50 for thallium tracer). Left ventricle function: Gated images demonstrate normal left ventricle wall thickening. No segmental wall motion abnormality. No transient ischemic dilation; TID is 0.71 (normal less than 1.3). The left ventricle resting end-diastolic volume is 144 mL. Left ventricle stress ejection fraction is 74%; normal values are above 45%. Myocardial perfusion: There is normal distribution of activity in the left and right ventricular myocardium. No fixed or reversible perfusion defects. IMPRESSION: Low risk study. No evidence of exercise-induced ischemia or scar on ECG and SPECT images. Exercise-induced chest discomfort at peak exercise reported. Normal blood pressure response to exercise. Reduced exercise capacity. Dictated by: Sierra Hutchison D.O. on 02/19/2022 at 12:54 Approved by: Sierra Hutchison D.O. on 02/19/2022 at 12:59
[2022-02-18 11:25] LABS: COVID19 -Nasal RAPID Negative (Negative)
== END ==
PROVIDERS: PCP Family Medicine; Referring Provider Family Medicine; Visit Provider Family Medicine
DX: R07.89 Other chest pain (principal); Z20.822 Contact with and (suspected) exposure to COVID-19
CPT/HCPCS: 78452; 87635; 93017; A9502

== ENCOUNTER → 2024-03-20 07:51 | Outpatient (CLI) | payer OTHER, SELFPAY ==
--- NOTE | 2024-04-13 08:41 | DIAB.MNT ---
Initial Diabetes Medical Nutrition Therapy Assessment Name: Geoff Ruano Date: 03/20/24 Time: [id number] Dx: Type II Diabetes Provider: Sylvester Harmon presents for initial DM visit. Reports FH of DM and mother had MS at age 38. Worries about his health and this diagnosis. States this diagnosis makes him nervous and is upset with himself. Reports d/c of regular soda for the last 2 months, prior was drinking soda 1/2x per day with dinner. 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 -11# since diagnoisis. During nov to feb was eating more fast food and candy. Has questions about supplements. Will discuss next visit. Not taking Metformin due to fear about side effects. States he worries about problems with kidney or pancreas. Endorses recent diet changes. Diet Recall: 9a; protein shake with breakfast sandwich or eggs sn; protein shake 12p: pretzels x 2 handfuls and carrots 3p: ww sandiwhc +/- baked chips 6-7p: mac and cheese with peas, carrots and beef OR pork with 2c corn and veg sn: nothing or sugar free chocolate Has a goal of no intake after 8p Drinks a gallon of water pe rday diet coke endorses freq urination Anthropometrics: Ht: 67 Wt: 321# Physical Activity: Endorses 6 months of hiatus fro cardio and gained 25-30#. 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 None for review. Diabetes Medications: 500mg Metformin-- not taking Pertinent Labs: hgA1c: 11.6% 02/2024 Past Medical History: (Last Reviewed 01/07/22 @ 12:25 by Jorge Fernando MD) Chronic pansinusitis Closed head injury Gladis bullosa Exposure to TB Fatigue due to sleep pattern disturbance Hormone disorder HTN (hypertension) Joint dislocation Low back pain Migraines Morbid obesity with body mass index (BMI) of 40.0 to 49.9 Nasal obstruction Nasal septal deviation Nasal turbinate hypertrophy Nocturnal hypoxemia Obstructive sleep apnea syndrome (~2017) CPAP Severe obesity (BMI >= 40) Resolved (BMI 51.83) Snoring Nutrition Rx: Carbohydrates: Meal:45-60g Snack:15-30g Nutrition Diagnosis: - Predicted excessive protein kcals r/t nutrition knowledge deficit aeb diet recall - Nutrition knowledge deficit r/t no previous MNT aeb pt report Intervention: This participant was very receptive. Provided appropriate educational handouts. Discussed the following topics: Completed intake assessment. Discussed barriers to care. Pathophysiology of T2DM and factors contributing to diagnosis HgA1c, its correlation to blood glucose numbers, and rationale for goal Importance of self-monitoring, how often, and when to check. Suggested checking at different times to evaluate meals Plate Method, impact of macronutrients on blood sugar, meal timing, carbohydrate counting, pairing macronutrients and spreading out carbohydrates for better blood glucose management Recommended servings for carbohydrates at meals and snacks Heart health nutrition Brainstormed appropriate meal plan based on food preferences Role of physical activity Weight management Medication Management: Metformin safety and GI SE and how to reduce Created SMART goals for patient self-care and success. Goals: Check FBG and pc Start Metformin, take with food Follow-up: CHERELLE BOLAÑOS follow-up in 3-4 weeks Mai Monteiro RDN, MIKY Certified Diabetes Care and Ultrasonic Seaming Machine Operator P: [phone] Thank you for this referral
== END ==
LOC: DIET 07:51
PROVIDERS: PCP Family Medicine; Referring Provider Family Medicine
DX: E11.9 Type 2 diabetes mellitus without complications (principal); Z71.3 Dietary counseling and surveillance; Z83.3 Family history of diabetes mellitus
CPT/HCPCS: 97802

== ENCOUNTER → 2024-05-01 09:45 | Outpatient (CLI) | payer OTHER, SELFPAY ==
--- NOTE | 2024-05-01 10:03 | DIAB.MNTFU ---
Follow-up Diabetes Medical Nutrition Therapy Assessment Name: Geoff Ruano Date: 05/01/24 Time: 12-22 Dx: Type II Diabetes Provider: Sylvester Harmon presents for DM visit follow-up. Reports FH of DM and mother had [place] at age 38. Worries about his health and this diagnosis. Down 19# since last visit per report. Reports significant reduced sugar intake. Started Metformin 500mg, diarrhea x 2-3 weeks, then resolved. Takes with protein shake. Making fresh lemonade with agave nectar. Diet Recall: 445a: protein shake +/- eggs and veg 7-8a: sometimes eggs and veg 10-11a: handful of pretzels and pb 11-12: sandwich, turkey or PBJ with sf jam, +/- baked lays 2-3p: same as 10as 6-7p: [place] x 1c with ww noodles OR chx, salad, corn x 1/2c OR tuesday night pizza x 3 slices Has a goal of no intake after 8p Drinks a gallon of water per day sf soda endorses freq urination, continued. Has had this since 2018, predating DM per report and has seen urology. Anthropometrics: Ht: 67 Wt: 321# reported last visit. Physical Activity: Working out 5-6 days per week. Cardio 3-4 days per week, weight lifting. Considering yoga. Back into [facility]. 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 Checking FBs. Later in the day 250-270s. None for review. BG 250-279mg/dl per report. Based on BG and lifestyle change, seems likely that he may benefit from additional DM medication. He has an appt with his PCP next week per report. Interested in CGM sample. Diabetes Medications: 500mg Metformin Pertinent Labs: hgA1c: 11.6% 02/2024 Past Medical History: (Last Reviewed 01/07/22 @ 12:25 by Jorge Fernando MD) Chronic pansinusitis Closed head injury Gladis bullosa Exposure to TB Fatigue due to sleep pattern disturbance Hormone disorder HTN (hypertension) Joint dislocation Low back pain Migraines Morbid obesity with body mass index (BMI) of 40.0 to 49.9 Nasal obstruction Nasal septal deviation Nasal turbinate hypertrophy Nocturnal hypoxemia Obstructive sleep apnea syndrome (~2017) CPAP Severe obesity (BMI >= 40) Resolved (BMI 51.83) Snoring Nutrition Rx: Carbohydrates: Meal:45-60g Snack:15-30g Nutrition Diagnosis: - Predicted excessive protein kcals r/t nutrition knowledge deficit aeb diet recall - Nutrition knowledge deficit r/t no previous MNT aeb pt report Intervention: This participant was very receptive. Provided appropriate educational handouts. Discussed the following topics: BG goals SE on Metformin and potential titration schedule if PCP increases dose Nutrition changes and recommendations Physical activity plans and progress Sugar substitutes and impact of agave and honey on BG Potential for CGM sample, CGM technology Created SMART goals for patient self-care and success. Goals: Check FBG and pc - met Start Metformin, take with food - met Download G7 kuldeep- new Try stevia for lemonade- new Follow-up: CHERELLE BOLAÑOS follow-up in 3-4 weeks Mai Monteiro RDN, MIKY Certified Diabetes Care and Book Author P: [phone] Thank you for this referral
== END ==
PROVIDERS: PCP Family Medicine; Referring Provider Family Medicine
DX: E11.9 Type 2 diabetes mellitus without complications (principal); Z83.3 Family history of diabetes mellitus; Z79.84 Long term (current) use of oral hypoglycemic drugs
CPT/HCPCS: 97803